=== PATIENT | male | born 1950 | race Caucasian/White ===

== ENCOUNTER 2024-09-29 08:06 | Inpatient (IN) | payer MEDICARE ==
[2024-09-29] VITALS (12 sets, daily range): BP systolic 108–159; BP diastolic 71–107; PULSE 73–89; RESP 13–18; TEMP 97.5–98.3; O2SAT 95–99
[~2024-09-29] VITALS: Ht 175.3 cm; Wt 80.9 kg
[~2024-09-29 08:06] MED LIST: ASPI81TA44 PO; LEVO88TA7 PO; TEMA30CA PO
[2024-09-29] MEDS ORDERED: LIDOcaine 1% 30ml preserv. free vial ONE (08:30)
[2024-09-29] MEDS ORDERED: verapamil 2.5 mg/ml inj IV ONE (08:30)
[2024-09-29] MEDS ORDERED: iohexol 350MG/ML 100ml bottle IV ONE (08:30)
[2024-09-29] MEDS ORDERED: fentaNYL/PF 50MCG/1 ML 2ML syringe ONE (08:30)
[2024-09-29] MEDS ORDERED: midazolam 1 mg/ML 2ml injection ONE (08:30)
[2024-09-29] MEDS ORDERED: heparin 1,000unit/ml 10ml vial 10 ML ONE (08:30)
[2024-09-29] MEDS ORDERED: atropine 0.1mg/ml 10ml syringe ONE (08:33)
[2024-09-29] MEDS ORDERED: epiNEPHrine 0.1mg/ml 10ml syringe ONE (08:33)
[2024-09-29 08:34] LABS: BASOPHILS % (AUTO) 0.4 % (0-1); EOSINOPHILS # (AUTO) 0.1 X10'3 (0-0.9); EOSINOPHILS % (AUTO) 1.2 % (0-6); HEMATOCRIT 46.9 % (42.0-52.0); HEMOGLOBIN 15.7 g/dl (14.0-17.9); LYMPHOCYTES # (AUTO) 2.1 X10'3 (1.1-4.8); LYMPHOCYTES % (AUTO) 25.1 % (21-51); MEAN CORPUSCULAR HEMOGLOBIN 31.4 PG (27.0-31.0); MEAN CORPUSCULAR HGB CONC 33.5 g/dL (33.0-36.5); MEAN CORPUSCULAR VOLUME 93.8 FL (78-98); MEAN PLATELET VOLUME 8.4 FL (7.4-10.4); MONOCYTES # (AUTO) 0.7 X10'3 (0-0.9); MONOCYTES % (AUTO) 8.5 % (2-12); NEUTROPHILS # (AUTO) 5.4 X10'3 (1.8-7.7); NEUTROPHILS % (AUTO) 64.8 % (42-75); PLATELET COUNT 203 X10'3 (140-440); RED CELL DISTRIBUTION WIDTH 13.8 % (11.5-14.5); WHITE BLOOD COUNT 8.4 X10'3 (4.5-11.0)
[2024-09-29] MEDS ORDERED: nitroGLYCERIN 500mcg/5mL D5W 5 ML IV ONE (08:34)
[2024-09-29] MEDS ORDERED: nitroGLYCERIN 0.4mg SUBLingual tab SL PRN (08:35)
[2024-09-29] MEDS ORDERED: heparin 25,000 UNIT/250ml bag 250 ML IV PRN (08:40)
[2024-09-29 08:55] LABS: ALANINE AMINOTRANSFERASE 53 U/L (12-78); ALBUMIN 3.7 G/DL (3.4-5.0); ALBUMIN/GLOBULIN RATIO 0.9 (1.1-1.5); ALKALINE PHOSPHATASE 124 IU/L (46-116); ANION GAP 7 (8-16); ASPARTATE AMINO TRANSFERASE 25 U/L (10-37); BILIRUBIN,TOTAL 0.5 MG/DL (0.1-1.0); BLOOD UREA NITROGEN 13 MG/DL (7-18); BUN/CREATININE RATIO 10.5 (10.0-20.0); CALCIUM 8.7 MG/DL (8.5-10.1); CHLORIDE 106 MMOL/L (99-107); CREATININE 1.24 MG/DL (0.60-1.10); GLUCOSE 178 MG/DL (70-104); POTASSIUM 3.8 MMOL/L (3.5-5.1); SODIUM 140 MMOL/L (135-145); TOTAL CARBON DIOXIDE 27.4 MMOL/L (24-32); TOTAL PROTEIN 7.7 G/DL (6.4-8.2); eCRCL 52 ML/MIN; eGFR 57 ML/MIN
[2024-09-29 08:57] LABS: PROTHROMBIN TIME 10.5 SECONDS (9.0-12.0)
[2024-09-29] MEDS ORDERED: heparin 10,000 units/1 ML INJ IV PRN (09:00)
[2024-09-29] MEDS ORDERED: heparin 10,000 units/1 ML INJ IV ONE (09:00)
[2024-09-29 09:01] LABS: PRO BRAIN NATRIURETIC PEPTIDE 46 PG/ML (0-125)
[2024-09-29] MEDS ORDERED: ticagrelor 90mg tablet ONE (09:08)
[2024-09-29] MEDS ORDERED: LEVO100T9 PO (10:31)
[2024-09-29] MEDS ORDERED: CALC-336 PO (10:31)
[2024-09-29] MEDS ORDERED: OMEP20CA16 PO (10:31)
[2024-09-29] MEDS: HEPARIN DRIP-CARDIAC**PHARMACIST-TO-DOSE IV ONE (12:23)
[2024-09-29] MEDS: aspirin 325mg tablet, delayed-release (Ecotrin) PO ONE (12:25)
[2024-09-29] MEDS: metoprolol tartrate 1mg/ml inj IV SCH (12:31)
[2024-09-29] MEDS ORDERED: potassium Cl 20 mEq SR tablet PO PRN ×2 (12:55)
[2024-09-29] MEDS ORDERED: magnesium sulf-water 4G/100mL 100 ML IV PRN (12:55)
[2024-09-29] MEDS ORDERED: magnesium sulf-water 2g/50mL 50 ML IV PRN (12:55)
[2024-09-29] MEDS ORDERED: potassium Cl 40MEQ/1/2NS 520ml 520 ML IV PRN (12:55)
[2024-09-29] MEDS ORDERED: acetaminophen 325mg tablet PO PRN (12:55)
[2024-09-29] MEDS ORDERED: ondansetron/PF 4mg/2ml inj IV PRN (12:55)
[2024-09-29] MEDS ORDERED: HYDROcodone/acetaminophen 5mg/325mg tablet PO PRN (12:55)
[2024-09-29] MEDS ORDERED: magnesium Cl slow-release 64mg tablet PO PRN (12:55)
[2024-09-29] MEDS ORDERED: mag hydrox/Alum hydrox/simeth 30ml oral suspension PO PRN (12:55)
[2024-09-29] MEDS ORDERED: TICA90TA PO (13:27)
[2024-09-29] MEDS ORDERED: ASPI81TA53 PO (13:27)
[2024-09-29 13:37] LABS: CHOLESTEROL 180 MG/DL (0-200); HDL CHOLESTEROL 45 MG/DL (35-60); LDL CHOLESTEROL 120 MG/DL (50-100); TRIGLYCERIDES 93 MG/DL (20-135)
[2024-09-29] MEDS: lisinopril 5mg tablet PO SCH (15:09)
[2024-09-29] MEDS: ticagrelor 90mg tablet PO SCH (19:20)
[2024-09-29] MEDS: metoprolol tartrate 25mg tablet PO SCH (19:21)
[2024-09-29] MEDS: K and/or MAG REPLACEMENT MC SCH (20:00)
[2024-09-30 02:00] VITALS: BP 105/69; PULSE 75; RESP 15; TEMP 98.2; O2SAT 97
[2024-09-30 06:00] VITALS: BP 97/66; PULSE 73; RESP 17; TEMP 97.7; O2SAT 96
[2024-09-30 06:25] LABS: BASOPHILS % (AUTO) 0.1 % (0-1); EOSINOPHILS # (AUTO) 0.1 X10'3 (0-0.9); EOSINOPHILS % (AUTO) 0.5 % (0-6); HEMATOCRIT 40.5 % (42.0-52.0); HEMOGLOBIN 13.9 g/dl (14.0-17.9); LYMPHOCYTES # (AUTO) 1.8 X10'3 (1.1-4.8); LYMPHOCYTES % (AUTO) 16.2 % (21-51); MEAN CORPUSCULAR HEMOGLOBIN 31.6 PG (27.0-31.0); MEAN CORPUSCULAR HGB CONC 34.2 g/dL (33.0-36.5); MEAN CORPUSCULAR VOLUME 92.4 FL (78-98); MEAN PLATELET VOLUME 8.6 FL (7.4-10.4); MONOCYTES # (AUTO) 1.1 X10'3 (0-0.9); MONOCYTES % (AUTO) 10.1 % (2-12); NEUTROPHILS # (AUTO) 8.1 X10'3 (1.8-7.7); NEUTROPHILS % (AUTO) 73.1 % (42-75); PLATELET COUNT 187 X10'3 (140-440); RED BLOOD COUNT 4.39 X10'6 (4.70-6.10); RED CELL DISTRIBUTION WIDTH 13.2 % (11.5-14.5); WHITE BLOOD COUNT 11.1 X10'3 (4.5-11.0)
[2024-09-30 06:47] LABS: ANION GAP 10 (8-16); BLOOD UREA NITROGEN 15 MG/DL (7-18); BUN/CREATININE RATIO 14.9 (10.0-20.0); CALCIUM 8.3 MG/DL (8.5-10.1); CHLORIDE 104 MMOL/L (99-107); CREATININE 1.01 MG/DL (0.60-1.10); GLUCOSE 143 MG/DL (70-104); POTASSIUM 3.7 MMOL/L (3.5-5.1); SODIUM 137 MMOL/L (135-145); TOTAL CARBON DIOXIDE 23.1 MMOL/L (24-32); eCRCL 64 ML/MIN; eGFR 72 ML/MIN
[2024-09-30] MEDS: atorvastatin 20mg tablet PO SCH (07:39)
[2024-09-30] MEDS: aspirin 81mg tab.chew PO SCH (07:39)
[2024-09-30 07:43] VITALS: PULSE 75
[2024-09-30 08:00] VITALS: BP 123/73; RESP 17; O2SAT 97
[2024-09-30] MEDS ORDERED: ATOR40TA2 PO (09:31)
[2024-09-30] MEDS ORDERED: LOP25T PO ×2 (09:31→09:37)
[2024-09-30] MEDS ORDERED: ATOR20TA66 PO (09:37)
== END 2024-09-30 10:37 | disposition home or self-care (01) | DRG 322 ==
LOC: ER 08:07 → PAS IN 13:18 → PCU 3S 17:00
PROVIDERS: ADMIT Internal Medicine Interventional Cardiology; ATTEND Internal Medicine Interventional Cardiology
PROC: 027034Z Dilation of Coronary Artery, One Artery with Drug-eluting Intraluminal Device, Percutaneous Approach (ICD-10-PCS; principal; 2024-09-29)
PROC: B2111ZZ Fluoroscopy of Multiple Coronary Arteries using Low Osmolar Contrast (ICD-10-PCS; 2024-09-29)
DX: I21.19 ST elevation (STEMI) myocardial infarction involving other coronary artery of inferior wall (principal); E03.9 Hypothyroidism, unspecified; I10 Essential (primary) hypertension; K21.9 Gastro-esophageal reflux disease without esophagitis; Z79.899 Other long term (current) drug therapy; Z87.891 Personal history of nicotine dependence; Z79.82 Long term (current) use of aspirin
CPT/HCPCS: 93306; 93454; 99291; C9606; 36415; 71045; 80048; 80053; 80061; 82948; 83880; 84484; 85025; 85610; 85730; 93005; 99152; 99153; A6258; C1725; C1751; C1769; C1874; C1894; G0378; J0171; J0461; J1644; J2003; J2250; J3010; J3490; J7030; Q9967